=== PATIENT | male | born 1970 | race Two or more races ===

== ENCOUNTER 2022-11-07 17:28 | Emergency (ER) | payer OTHER ==
[~2022-11-07] VITALS: Ht 167.6 cm; Wt 102.2 kg
[2022-11-07] MEDS ORDERED: TETANUS-DIPTH-ACEL PERTUSSIS 0.5ML SYR Tdap IM ONE (18:30)
[2022-11-07] MEDS ORDERED: cefTRIAXone SOD 1,000 MG VL IM ONE (18:30)
[2022-11-07] MEDS ORDERED: cloNIDine HCL 0.1 MG TAB PO ONE (19:00)
[2022-11-07 20:05] VITALS: BP 149/108
== END 2022-11-07 21:09 | disposition home or self-care (01) ==
LOC: EEVIPCON 17:28 → ER 17:28
DX: L03.011 Cellulitis of right finger (principal); I10 Essential (primary) hypertension; E11.9 Type 2 diabetes mellitus without complications; E78.5 Hyperlipidemia, unspecified
CPT/HCPCS: 90471; 90715; 96372; 99284; J0696

== ENCOUNTER 2023-06-10 13:11 | Emergency (ER) | payer OTHER ==
[~2023-06-10] VITALS: Ht 167.6 cm; Wt 109.0 kg
[2023-06-10 16:02] VITALS: BP 162/90; PULSE 93; RESP 16; TEMP 98.6; O2SAT 96
== END 2023-06-10 16:21 ==
LOC: ER 13:11 → EEVIPCON 13:11 → EDBD 13:11 → ER 16:21
DX: S06.0X0A Concussion without loss of consciousness, initial encounter (principal); S00.83XA Contusion of other part of head, initial encounter; S80.212A Abrasion, left knee, initial encounter; S80.211A Abrasion, right knee, initial encounter; I10 Essential (primary) hypertension; E11.9 Type 2 diabetes mellitus without complications; E78.5 Hyperlipidemia, unspecified; Y04.2XXA Assault by strike against or bumped into by another person, initial encounter; Y93.89 Activity, other specified; Y92.89 Other specified places as the place of occurrence of the external cause; Y99.8 Other external cause status
CPT/HCPCS: 70450; 70486; 72125; 82962

== ENCOUNTER → 2023-09-01 | Day surgery (SDC) | payer OTHER ==
[~2023-09-01] VITALS: Ht 198.1 cm; Wt 102.0 kg
[~2023-09-01] MED LIST: ACCU-CHEK COMFORT CURVE STRIP VI ONE; BUPIVACAINE HCL 50 ML ONE; DexAMETHasone SOD PHOS 10MG/1ML VIAL INJ ONE; EPINEPHrine HCL 1 MG/1 ML AMP ONE; FAMOTIDINE (10MG/ML) 2ML VL IV ONE; GLYCOPYRROLATE 0.2 MG/ML 1ML VIAL ONE; HYDROmorphone HCL 2 MG/ML VL/or syr IV PRN; HYDROmorphone HCL 2 MG/ML VL/or syr ONE; KETAMINE 50mg/ML 10ml Vial (500mg/10ml) IV ONE; KETOROLAC TROMETH 60MG/2ML VIAL ONE; LIDOCAINE 1% HCL (LOCAL ANESTH.) INJ 20ML MDV ONE; LIDOCAINE 2% (LOCAL ANESTH.) PF 5ml SDV ONE; LIDOCAINE W/ EPINEPHRINE 1% 20ML VIAL ONE; MIDAZOLAM HCL 2MG/2ML 2ml VIAL (1mg/ml) ONE; ONDANSETRON HCL 4 MG/2 ML VIAL IV PRN; ONDANSETRON HCL 4 MG/2 ML VIAL ONE; PHENYLEPHRINE HCL 10 MG/ML VL ONE; PIPERACILLIN-TAZOB 3.375GM 100 ML IV ONE; PROPOFOL 10 MG/ML 20 ML IV ONE; SUGAMMADEX 200mg/2ml Vial (100MG/ML) IV ONE; ceFAZolin 2 GM/D5W100ml 100 ML IV ONE; ePHEDrine SULFATE 50 MG/ML AMP ONE; fentaNYL CITRATE 100 MCG/2 ML VL ONE
[2023-09-01 09:05] VITALS: RESP 93; TEMP 97.8; O2SAT 100
[2023-09-01 09:45] VITALS: BP 141/89; PULSE 87; RESP 16; O2SAT 95
== END | disposition home or self-care (01) ==
LOC: SUR 06:22 → EEVIPCON 09:00
DX: K60.3 Anal fistula (principal); I10 Essential (primary) hypertension; E11.9 Type 2 diabetes mellitus without complications; K21.9 Gastro-esophageal reflux disease without esophagitis
CPT/HCPCS: 45990; 64430; 82962; J1100; J1170; J1885; J2001; J2250; J2405; J2704; J3010; J3490; J0171